=== PATIENT | female | born 1990 | race Caucasian/White ===

== ENCOUNTER 2019-06-28 11:52 | Emergency (ER) | payer MEDICAID ==
[~2019-06-28] VITALS: Ht 175.3 cm; Wt 92.7 kg
[2019-06-28] MEDS ORDERED: CODE10LI PO (13:41)
[2019-06-28] MEDS ORDERED: ALBU8HFA PO (13:41)
[2019-06-28 14:01] VITALS: BP 102/61
== END 2019-06-28 14:03 | disposition home or self-care (01) ==
LOC: ER 11:53
DX: J20.8 Acute bronchitis due to other specified organisms (principal); J45.909 Unspecified asthma, uncomplicated; K21.9 Gastro-esophageal reflux disease without esophagitis
CPT/HCPCS: 87077; 87081; 87880; 99283

== ENCOUNTER 2019-08-01 08:16 | Emergency (ER) | payer MEDICAID ==
[~2019-08-01] VITALS: Ht 175.3 cm; Wt 97.7 kg
[~2019-08-01 08:16] MED LIST: CODE10LI PO
[2019-08-01 08:18] VITALS: BP 147/82
[2019-08-01] MEDS ORDERED: famotidine 20mg tablet PO ONE (09:00)
[2019-08-01 09:35] LABS: BASOPHILS # (AUTO) 0.1 X10'3 (0-0.2); BASOPHILS % (AUTO) 1.1 % (0-1); EOSINOPHILS # (AUTO) 0.6 X10'3 (0-0.9); EOSINOPHILS % (AUTO) 9.9 % (0-6); HEMATOCRIT 40.3 % (35.0-45.0); LYMPHOCYTES # (AUTO) 1.8 X10'3 (1.1-4.8); LYMPHOCYTES % (AUTO) 28.8 % (21-51); MEAN CORPUSCULAR HEMOGLOBIN 28.1 PG (27.0-31.0); MEAN CORPUSCULAR HGB CONC 32.2 g/dL (33.0-36.5); MEAN CORPUSCULAR VOLUME 87.2 FL (78-98); MONOCYTES # (AUTO) 0.6 X10'3 (0-0.9); MONOCYTES % (AUTO) 9.7 % (2-12); NEUTROPHILS # (AUTO) 3.1 X10'3 (1.8-7.7); NEUTROPHILS % (AUTO) 50.5 % (42-75); PLATELET COUNT 227 X10'3 (140-440); RED BLOOD COUNT 4.62 X10'6 (4.20-5.60); RED CELL DISTRIBUTION WIDTH 15.2 % (11.5-14.5); WHITE BLOOD COUNT 6.1 X10'3 (4.5-11.0)
[2019-08-01 09:50] LABS: ALANINE AMINOTRANSFERASE 23 U/L (12-78); ALBUMIN 3.6 G/DL (3.4-5.0); ALKALINE PHOSPHATASE 56 IU/L (46-116); ANION GAP 6 (8-16); ASPARTATE AMINO TRANSFERASE 17 U/L (10-37); BILIRUBIN,TOTAL 0.3 MG/DL (0.1-1.0); BLOOD UREA NITROGEN 15 MG/DL (7-18); BUN/CREATININE RATIO 16.9 (6.6-38.0); CALCIUM 8.9 MG/DL (8.5-10.1); CHLORIDE 108 MMOL/L (99-107); CREATININE 0.89 MG/DL (0.40-0.90); GLUCOSE 92 MG/DL (70-104); POTASSIUM 4.2 MMOL/L (3.5-5.1); SODIUM 141 MMOL/L (135-145); TOTAL CARBON DIOXIDE 27.3 MMOL/L (24-32); TOTAL PROTEIN 7.1 G/DL (6.4-8.2); eGFR 76 ML/MIN
[2019-08-01] MEDS ORDERED: ALBU6.7H9 INH (09:58)
== END 2019-08-01 10:05 | disposition home or self-care (01) ==
LOC: ER 08:16
DX: J45.901 Unspecified asthma with (acute) exacerbation (principal); K21.0 Gastro-esophageal reflux disease with esophagitis; Z79.899 Other long term (current) drug therapy
CPT/HCPCS: 36415; 71045; 80053; 85025; 99284

== ENCOUNTER 2020-01-17 12:32 | Emergency (ER) | payer MEDICAID ==
[~2020-01-17] VITALS: Ht 177.8 cm; Wt 102.3 kg
[~2020-01-17 12:32] MED LIST changes: +ALBU6.7H9 INH
[2020-01-17] MEDS ORDERED: ALBU8HFA PO (13:31)
[2020-01-17] MEDS ORDERED: INHA1SPA32 PEG (13:31)
[2020-01-17 13:44] VITALS: BP 134/86
== END 2020-01-17 13:41 | disposition home or self-care (01) ==
LOC: ER 12:32
DX: T78.49XA Other allergy, initial encounter (principal); R09.89 Other specified symptoms and signs involving the circulatory and respiratory systems; R05 Cough; R42 Dizziness and giddiness; Z88.2 Allergy status to sulfonamides; Z79.899 Other long term (current) drug therapy; X58.XXXA Exposure to other specified factors, initial encounter
CPT/HCPCS: 99283